=== PATIENT | female | born 2000 | race Caucasian/White ===

== ENCOUNTER 2019-01-18 17:12 | Emergency (ER) | payer OTHER ==
[~2019-01-18] VITALS: Ht 160 cm; Wt 83.9 kg
[2019-01-18 17:36] VITALS: BP 126/83
[2019-01-18] MEDS ORDERED: CYCL10TA2 PO (18:29)
[2019-01-18] MEDS ORDERED: NAPR-514 PO (18:29)
--- NOTE | 2019-01-18 18:30 | PHYS DOC ---
Past Medical History Past Medical History: No Pertinent History (JUDITH FLYNN APRN) Past Surgical History: (JUDITH FLYNN APRN) Alcohol Use: None Drug Use: None (JUDITH FLYNN APRN) Adult General Chief Complaint Chief Complaint: SHOULDER INJURY HPI HPI Patient is a 18 year old female who presents to the emergency Department today with complaints of right shoulder pain and tightness for the last 6 days. 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 She denies any numbness, tingling, or decreased range of motion. SHe currently rates the pain as 3 out of 10 on the pain scale, she denies any alleviating factors. Patient states she has been applying ice at home. She states that the discomfort increases with movement. (JUDITH FLYNN APRN) Review of Systems Review of Systems Constitutional: Denies fever or chills [] Musculoskeletal: see history of present illness Integument: Denies rash or skin lesions [] Neurologic: Denies headache, focal weakness or sensory changes [] (JUDITH FLYNN APRN) Allergies Allergies Allergies Coded Allergies Type Severity Reaction Last Updated Verified No Known Drug Allergies 01/18/19 No (RONA RADER MD) Physical Exam Physical Exam Constitutional: Well developed, well nourished, no acute distress, non-toxic appearance. [] HENT: Normocephalic, atraumatic, bilateral external ears normal, nose normal. [] Eyes: PERRLA, no discharge. [] Neck: Normal range of motion, no tenderness, supple, no stridor. [] Cardiovascular:Heart rate regular rhythm Lungs & Thorax: Bilateral breath sounds clear to auscultation [] Skin: Warm, dry, no erythema, no rash, no bruising. [] Back: No bony tenderness, right thoracic paraspinal tenderness Extremities: No bony tenderness, no cyanosis, no clubbing, ROM intact, no edema; right posterior shoulder tightness with palpation [] Neurologic: Alert and oriented X 3, normal motor function, normal sensory function, no focal deficits noted. [] Psychologic: Affect normal, judgement normal, mood normal. [] (JUDITH FLYNN APRN) Current Patient Data Vital Signs Vital Signs Date Time Temp Pulse Resp B/P (MAP) Pulse Ox O2 Delivery O2 Flow Rate FiO2 01/18/19 17:36 98.0 75 16 126/83 (97) 98 Room Air 98.0 (RONA RADER MD) EKG EKG [] (JUDITH FLYNN APRN) Radiology/Procedures Radiology/Procedures [] (JUDITH FLYNN APRN) Course & Med Decision Making Course & Med Decision Making Pertinent Labs and Imaging studies reviewed. (See chart for details) dx: Right shoulder strain Prescriptions written for naproxen and Flexeril. Recommend application of ice or heat as needed for comfort. Follow-up with if symptoms persist, return to the ER if symptoms worsen. Patient verbalized an understanding of home care, medications, follow-up, and return to ED instructions and was in agreement with the plan of care. [] (JUDITH FLYNN APRN) Course & Med Decision Making Staff Physician Addendum: I was working in the ER during the course of this patient's visit. I was available for consultation as needed, but I was not directly involved in the care of this patient. (RONA RADER MD) Dragon Disclaimer Dragon Disclaimer This electronic medical record was generated, in whole or in part, using a voice recognition dictation system. (JUDITH FLYNN APRN) Departure Departure Impression: Primary Impression: Right shoulder strain Disposition: 01 HOME, SELF-CARE Condition: STABLE Referrals: CIRA JACOBS MD Patient Instructions: Shoulder Sprain, Shoulder, Range of Motion Exercises Additional Instructions: Fill prescription(s) and use as directed. Recommend application of ice, elevation, and rest of affected extremity. Activity as tolerated. Follow up with Dr. Jacobs if symptoms persist. Return to the ER if your symptoms worsen. Scripts Naproxen (NAPROXEN) 500 Mg Tablet 1 TAB PO BID PRN for PAIN for 10 Days, #20 TAB 0 Refills Prov: JUDITH FLYNN APRN 01/18/19 Cyclobenzaprine Hcl (CYCLOBENZAPRINE HCL) 10 Mg Tablet 1 TAB PO TID PRN for PAIN for 7 Days, #21 TAB 0 Refills Prov: JUDITH FLYNN APRN 01/18/19 Problem Qualifiers Primary Impression: Right shoulder strain Encounter type: initial encounter Qualified Codes: S46.911A - Strain of unspecified muscle, fascia and tendon at shoulder and upper arm level, right arm, initial encounter JUDITH FLYNN APRN Jan 18, 2019 18:30 RONA RADER MD Jan 18, 2019 21:48
[2019-01-29] MEDS ORDERED: CEPH-264 PO (04:26)
[2019-01-29] MEDS ORDERED: PHEN-318 PO (04:26)
== END 2019-01-18 18:41 | disposition home or self-care (01) ==
LOC: ER 17:12
DX: S46.911A Strain of unspecified muscle, fascia and tendon at shoulder and upper arm level, right arm, initial encounter (principal); X50.3XXA Overexertion from repetitive movements, initial encounter; Y93.E5 Activity, floor mopping and cleaning; Y92.69 Other specified industrial and construction area as the place of occurrence of the external cause; Y99.0 Civilian activity done for income or pay
CPT/HCPCS: 99283